=== PATIENT | female | born 1970 | race Caucasian/White ===

== ENCOUNTER 2023-10-18 07:07 | Day surgery (SDC) | payer MEDICAID ==
[~2023-10-18] VITALS: Ht 162.6 cm; Wt 74.8 kg
[~2023-10-18 07:07] MED LIST: ceFAZolin SODIUM 2 GM in NS 100 ML IV ONE
[2023-10-18 08:17] LABS: HCG,QUAL RESULT NEGATIVE (NEGATIVE)
[2023-10-18] MEDS ORDERED: ROCURONIUM BROMIDE 10 MG/ML (ZEMURON) ONE (09:34)
[2023-10-18] MEDS ORDERED: NS 1000 ML IV.SOLN IV ONE (09:34)
[2023-10-18] MEDS ORDERED: LIDOCAINE 2%, 20 ML MDV ONE (09:34)
[2023-10-18] MEDS ORDERED: fentaNYL CITRATE/PF 100 MCG/2 ML AMP ONE (09:34)
[2023-10-18] MEDS ORDERED: WATER FOR IRRIGATION,STERILE 1,000 ML IRRIG.SOLN IR ONE (09:34)
[2023-10-18] MEDS ORDERED: ONDANSETRON HCL 4 MG/2 ML VIAL ONE (09:34)
[2023-10-18] MEDS ORDERED: PROPOFOL 200MG/ 20ML VIAL (DIPRIVAN) IV ONE (09:34)
[2023-10-18] MEDS ORDERED: DESFLURANE 15 MIN GAS INH ONE (09:34)
[2023-10-18] MEDS ORDERED: MUPIROCIN 2% TOPICAL OINTMENT 22 GM ONE (09:34)
[2023-10-18] MEDS ORDERED: LIDOCAINE/EPI 1% 1:100000 20 ML VIAL ONE (09:34)
[2023-10-18] MEDS ORDERED: SUGAMMADEX SODIUM 200 MG/2 ML VIAL IV ONE (09:34)
[2023-10-18] MEDS ORDERED: MIDAZOLAM HCL/PF 2 MG/2 ML SYRINGE ONE (09:34)
[2023-10-18 09:40] VITALS: O2SAT 100
[2023-10-18] MEDS ORDERED: ACETAMINOPHEN I.V. 1000 MG 0 ML IV ONE (10:27)
[2023-10-18] MEDS ORDERED: HYDROmorphone 1 MG/ML INJ. CARTRIDGE IVP PRN ×2 (10:30)
[2023-10-18] MEDS ORDERED: MEPERIDINE HCL/PF 25 MG/ML DISP.SYRIN IVP PRN (10:30)
[2023-10-18] MEDS ORDERED: MIDAZOLAM HCL 2 MG/2 ML VIAL (VERSED) IVP PRN (10:30)
[2023-10-18] MEDS ORDERED: LABETALOL 100 MG/ 20ML VIAL IVP PRN (10:30)
[2023-10-18] MEDS ORDERED: METOCLOPRAMIDE HCL 10 MG/2 ML VIAL IVP PRN (10:30)
[2023-10-18] MEDS ORDERED: LR 1,000 ML IV SCH (10:30)
[2023-10-18] MEDS ORDERED: hydrALAZINE HCL 20 MG/ML VIAL IVP PRN (10:30)
[2023-10-18] MEDS ORDERED: ACETAMINOPHEN I.V. 1000 MG 100 ML IV ONE (11:17)
[2023-10-18] MEDS ORDERED: hydrALAZINE HCL 20 MG/ML VIAL ONE (12:21)
[2023-10-18] MEDS ORDERED: INSULIN REGULAR, HUMAN 100 UNITS/ML, 3 ML VIAL (humuLIN R) ONE (12:23)
[2023-10-18] MEDS ORDERED: METOCLOPRAMIDE HCL 10 MG/2 ML VIAL ONE (14:36)
[2023-10-18 14:51] VITALS: BP_SYST 160; PULSE 80; RESP 20
== END 2023-10-18 16:10 | disposition home or self-care (01) ==
LOC: SDS 07:07 → SMU 07:13 → SDS 16:10
PROVIDERS: ATTEND Otolaryngology
DX: D38.5 Neoplasm of uncertain behavior of other respiratory organs (principal); J34.2 Deviated nasal septum; E78.00 Pure hypercholesterolemia, unspecified; E11.49 Type 2 diabetes mellitus with other diabetic neurological complication; I10 Essential (primary) hypertension; R22.0 Localized swelling, mass and lump, head; K21.9 Gastro-esophageal reflux disease without esophagitis; G47.33 Obstructive sleep apnea (adult) (pediatric); Z99.89 Dependence on other enabling machines and devices
CPT/HCPCS: 31255; 30140; 30520; 31240; 31256; 82962; 84703; 82948; 88304; 88305; 88311; J3490; J0360; J1815; J2001; J2765; J3465; J2405; J2704; J3010; J7030; A4649; C1726; J0131